=== PATIENT | female | born 1955 | race Caucasian/White ===

== ENCOUNTER 2016-06-27 14:15 | Observation (INO) | payer OTHER ==
[~2016-06-27] VITALS: Ht 160 cm; Wt 72.4 kg
[2016-06-27] VITALS (9 sets, daily range): BP systolic 113–172; BP diastolic 58–81; PULSE 55–100; RESP 18–23; O2SAT 92–97
[~2016-06-27 14:15] MED LIST: ACET-171 PO; ASPI-973 PO; ATOR10TA66 PO; CARV12.52 PO; CHOL200025 PO; CLOP75TA28 PO; CYAN500 PO; ENAL20TA76 PO; FLAX100038 PO; LYSI500T3 PO; MULT1CAP33 PO; NITR0.4T SL; PARO10TA2 PO; SPIR25TA PO; UBID100C25 PO
[2016-06-27 14:50] LABS: BASOPHILS % (AUTO) 0.5 % (0-3); EOSINOPHILS % (AUTO) 1.1 % (0-5); MONOCYTES % (AUTO) 6.8 % (4-12); Mean Corpuscular Hemoglobin 31.3 pg (27.0-35.0); Mean Corpuscular Volume 92.2 fL (81-100); NEUTROPHILS % (AUTO) 64.7 % (40-74); Platelet Count 246 bil/L (150-400)
--- NOTE | 2016-06-27 15:00 | DRSVH ---
PROCEDURE: X-RAY CHEST ONE VIEW, PORTABLE ([id number]) INDICATIONS: CHEST PAIN TECHNIQUE: One view of the chest was acquired. COMPARISON: [facility], CR, XR CHEST 1V PORTABLE, 11/22/2015, 9:03 PM. FINDINGS: Surgical changes and devices: None. Lungs and pleura: No pleural effusions or pneumothorax. Lungs are clear. Mediastinum: Mediastinal contours appear normal. Heart size is normal. Bones and chest wall: No suspicious bony lesions. Overlying soft tissues appear unremarkable. IMPRESSION: No acute process. Dictated by: Rylie Rodriguez M.D. on 06/27/2016 at 14:58 Approved by: Rylie Rodriguez M.D. on 06/27/2016 at 14:59
--- NOTE | 2016-06-27 15:11 | ED.REPORT ---
HPI-Chest Pain 40 and Over Date of Service Jun 27, 2016 ED Provider: Ela Olmstead MD A 60 year old female with a history of leukemia, hypertension, hyperlipidemia, chronic kidney disease, CAD, and prior STEMI s/p cardiac stenting x6 (11/2015) presents to the ED with upper back pain onset yesterday, worsening this morning upon awakening. The pain is exacerbated with exertion and swallowing, and relieved with laying flat. The patient also reports experiencing nausea and diaphoresis this afternoon, while driving. She denies shortness of breath, chest pain, arm pain, abdominal pain, or other symptoms. The patient's symptoms are similar to her recent NE, without left arm pain. Nursing Notes Stated Complaint: CHEST PAIN Chief Complaint: Chest Pain Nursing Notes Reviewed: Yes Allergies: Coded Allergies: Sulfa (Sulfonamide Antibiotics) (Verified Allergy, Intermediate, nausea and vomiting., 06/27/16) Scheduled Aspirin (Aspirin) 81 Mg Tablet 81 MG PO DAILY Atorvastatin Calcium (Atorvastatin Calcium) 10 Mg Tablet 10 MG PO HS Carvedilol (Carvedilol) 12.5 Mg Tablet 12.5 MG PO BIDWM Cholecalciferol (Vitamin D3) (Vitamin D3) 2,000 Unit Tablet 2,000 UNIT PO DAILY Clopidogrel (Clopidogrel) 75 Mg Tablet 75 MG PO DAILY Cyanocobalamin (Vitamin B12) 500 Mcg Tablet 1,000 MCG PO DAILY Enalapril Maleate (Vasotec) 20 Mg Tablet 20 MG PO DAILY Flaxseed Oil ([place]-3 Flaxseed Oil) 1,000 Mg Capsule 1,000 MG PO DAILY Lysine (Lysine) 500 Mg Tablet 500 MG PO DAILY Multivitamin (Multivitamins) 1 Each Capsule 1 EACH PO DAILY [place]-3 Fatty Acids (Fish Oil) 500 Mg Capsule.dr 500 MG PO DAILY Paroxetine (Paroxetine) 10 Mg Tablet 10 MG PO DAILY Spironolactone (Aldactone) 25 Mg Tablet 12.5 MG PO DAILY Ubidecarenone (Co Q-10) 100 Mg Capsule 100 MG PO BID Scheduled PRN Acetaminophen (Acetaminophen) 325 Mg Tablet 650 MG PO Q4H PRN PRN For Pain Nitroglycerin SL (Nitrostat) 0.4 Mg Tab.subl 0.4 MG SL Q5MIN PRN PRN For Chest Pain IF SBP > 90 General Time Seen by MD: 14:37 Chief Complaint Back pain Hx Obtained From: Patient Arrived By: Walk-in Sudden in Onset?: No Onset Occurred: Yesterday Symptom Duration: Since onset Location: : Back Quality: Painful Severity: Current: Moderate Severity: Maximum: Moderate Associated with: Reports: Diaphoresis, Nausea, Denies: Fever Relieved by: Supine Context Related History: Reports: Acute coronary syndrome, Hypertension, Myocardial infarction Recent Healthcare: No recent doctor visit Similar Sx Previous: Yes Past Medical History Past Medical History Notes: Obtained 11/2015 from [facility]: LABS: WBC 13.2 HGB: 13.2 HEMACTOCRIT: 38.3 PLT: 288 Troponin I: 4.050 with upper limit of normal being 0.050 Chest X Ray normal. Aspirins given at [facility] [place]: aspirin 324, plavix 600 mg, heparin bolus 3650 units and drip, nitroglycerin Metabolic panel: NA: 138 K: 3.4 Cl: 100 CO2: 26 Gluc: 121 BUN: 18 CR: 1.37 Bili: 0.9 CA: 8.2 Alt: 36 ASt: 32 Pt: 10.3 INR 1.0 Past Medical History Leukemia (2001) Shingles x2 Hypertension Hyperlipidemia CAD Acute anterior wall STEMI (11/2015) Chronic kidney disease Past Surgical History 1. PCI with balloon angioplasty and successful placement of 1 PA to the LAD / Dr. Adame (11/2015) 2. PCI with balloon angioplasty and 4 PA Xience stents to the RCA ( procedure complicated by RCA dissection) / Dr. Adame (11/2015) Family History 2 family members with early onset coronary disease. Smoking History Never Smoker Social History Other Social History: Good social support Occupation [employer] Ambulatory Status Independent Review of Systems Constitutional: Denies: Fever Respiratory: Denies: Non-productive cough, Shortness of breath Cardiovascular: Denies: Chest pain GI: Reports: Nausea, Denies: Abdominal pain, Diarrhea, Vomiting Musculoskeletal: Reports: Back pain, Denies: Extremity pain Skin: Reports Diaphoresis Complete sys rev & neg: except as marked. Physical Exam Initial Vital Signs Vital Signs (First) Date Time Temp Pulse Resp B/P Pulse Ox O2 Delivery O2 Flow Rate FiO2 06/27/16 14:20 36.4 60 20 158/70 97 Room Air Initial VS: Reviewed, Vital signs abnormal Head / Eyes: Atraumatic, Normocephalic ENT: Conjunctiva normal, No scleral icterus Neck: Supple, Full range of motion Skin: Warm, Dry, No cyanosis Neurologic: Alert, Oriented, Nonfocal Psychiatric: Mood/affect normal, Behavior normal, Normal thought content General/Constitutional: Awake, Alert, No acute distress Respiratory / Chest: Breath sounds NL, Breath sounds = bilat, No respiratory distress Cardiovascular: Heart rate NL, Regular rhythm, Heart sounds NL, No murmurs, No rubs Abdomen: Soft, Non-tender Interpretation & Diagnostics Lab Results Interpretation Result Diagram: 06/27/16 1435 06/27/16 1435 Test 06/27/16 14:35 White Blood Count 6.5th/mm3 (3.8-10.1) Red Blood Count 4.12mil/mm3 (3.90-5.20) Hemoglobin 12.9g/dL (12.0-15.6) Hematocrit 38.0% (35.0-46.0) Mean Corpuscular Volume 92.2fL (81-100) Mean Corpuscular Hemoglobin 31.3pg (27.0-35.0) Mean Corpuscular Hemoglobin Concent 33.9% (32.0-37.0) Red Cell Distribution Width 13.5% (12.3-15.4) Platelet Count 246bil/L (150-400) Neutrophils (%) (Auto) 64.7% (40-74) Lymphocytes (%) (Auto) 26.7% (14-46) Monocytes (%) (Auto) 6.8% (4-12) Eosinophils (%) (Auto) 1.1% (0-5) Basophils (%) (Auto) 0.5% (0-3) Sodium Level 141mEq/L (134-144) Potassium Level 4.3mEq/L (3.5-5.2) Chloride Level 105mEq/L (97-108) Carbon Dioxide Level 20mmol/L (18-29) Blood Urea Nitrogen 19mg/dL (8-27) Creatinine 1.23mg/dL (0.57-1.00) Estimat Glomerular Filtration Rate 64mL/min (>59) Glucose Level 96mg/dL (60-99) Calcium Level 9.7mg/dL (8.5-10.1) Magnesium Level 1.9mg/dL (1.6-2.6) Total Bilirubin 0.8mg/dL (0.0-1.2) Aspartate Amino Transf (AST/SGOT) 21U/L (0-50) Alanine Aminotransferase (ALT/SGPT) 15U/L (0-32) Alkaline Phosphatase 60U/L (25-165) Total Creatine Kinase 246U/L (21-215) Creatine Kinase MB 5.8ng/mL (0.0-5.3) Creatine Kinase MB % 2.4% (0.0-5.0) Troponin T < 0.010ug/L (0.0-0.011) Total Protein 7.4g/dL (6.4-8.4) Albumin 4.6g/dL (3.4-5.0) Hold Menjivar Top Tube Received (Received) ECG Interpretation ECG Interpretation: Sinus bradycardia rate 54 T-wave flattening in leads III, aVF, V5, and V6 Q waves in V1 and V2 Similar to previous on 11/25/2015, however T-wave changes are new Time: 14:33 Interpreted by: ED physician X-Ray Chest Interpretation Chest Xray Interpretation: IMPRESSION: No acute process. Dictated by: Rylie Rodriguez M.D. on 06/27/2016 at 14:58 View: Portable, 1 view Interpretation / Wet Read by: Interpret - Radiologist Re-Eval/Medical Decision Med Decision/Clinical Course The patient has atypical cardiac pain that presents with similar symptoms. She came in today because her symptoms are worse. Patient has symptoms of any kind of activities. She is pain-free lying back and at rest. Given her history and the fact that she easily gets symptoms is felt she should be admitted to the hospital for stress test. Additional differential diagnoses considered were pneumonia, pulmonary embolus, and musculoskeletal pain. Source of Hx: Old records Time of Eval: 16:36 Patient Status: Condition improved Re-Evaluation/Progress Note: The patient's pain has improved, especially while resting, but has not completely resolved. Discussed with patient lab and x-ray results, diagnosis, and plan for admit. Patient agrees with plan for care and all questions were addressed. Consultation : Referral / Consult Name: Dirk Spaulding MD Consulted With: Hospitalist Call Returned at: 17:06 Liquor Commissioner: Agrees with eval, Agrees with plan, Accepts admit Counseled Regarding: Diagnosis, Lab results, Need for admission Discharge & Departure Primary Impression: Chest pain Chest pain type: other chest pain Qualified Code: R07.89 - Other chest pain Disposition: ADMITTED TO HOSPITAL Discharge Condition All VS Reviewed: Yes Condition: Improved Referrals: Esperanza Chin PA-C (PCP) Scribe Attestation Portions of this note were transcribed by Sandra Mejia. I, Dr. Olmstead, personally performed the history, physical exam, and medical decision-making; I reviewed and confirmed the accuracy of the information in the transcribed note. Signed by: Brenden Escobar, 06/27/2016, 17:10 copies to: Esperanza Chin PA-C, Jena M MD Jun 27, 2016 15:11 SANDRA MEJIA Jun 27, 2016 15:18
[2016-06-27 15:14] LABS: TROPONIN T < 0.010 ug/L (0.0-0.011)
[2016-06-27] MEDS ORDERED: Nitroglycerin 2% 1 Gm Ointment TOPICAL ONE (15:20)
[2016-06-27 15:23] LABS: Magnesium 1.9 mg/dL (1.6-2.6)
[2016-06-27] MEDS ORDERED: Ondansetron 2 mg/mL 2 mL Inj IVPUSH PRN (17:05)
[2016-06-27] MEDS ORDERED: Senna-Docusate 8.6-50 mg Tablet PO PRN (17:05)
[2016-06-27] MEDS ORDERED: Polyethylene Glycol (PEG) 17 Gm Powder PO PRN (17:05)
[2016-06-27] MEDS ORDERED: Alum-Mag Hydrox-Simeth 30 mL Suspension PO PRN (17:05)
--- NOTE | 2016-06-27 17:14 | PCM.HPMED ---
Subjective Date of Service Jun 27, 2016 Primary Provider: Admitting Physician: Dirk Spaulding MD Primary Care Physician: Esperanza Chin PA-C Attending Physician: Dirk Spaulding MD Chief Complaint: Back pain radiating to left arm Review of Systems: Gen.: No fevers chills weight loss weight gain Eyes: no visual disturbances or blurring vision HEENT: No nose/throat drainage, no pain in ears or throat, no hearing loss Lymph: No lymph nodes noted Cardiac: No chest pain, orthopnea, PND, palpitations , pedal edema or dyspnea on exertion Pulmonary: no cough, wheezing or bringing up of sputum GI: No anorexia nausea vomiting blood or black in the stool : no dysuria hematuria urinary frequency or decrease in urine output Musculoskeletal: Joint swelling no joint pain no new muscle aches or back pain Neuro: No syncope, seizures no loss of consciousness no new focal weakness, numbness or tingling Psychiatric: New new anxiety insomnia or depression Endocrine: No new heat or cold intolerances polyuria or polydipsia Hematology: No lymphadenopathy or easy bleeding or bruising noted skin: No new rashes, stasis dermatitis Allergies Coded Allergies: Sulfa (Sulfonamide Antibiotics) (Verified Allergy, Intermediate, nausea and vomiting., 11/23/15) Home Medications Acetaminophen (Acetaminophen) 500 Mg Tablet 500 MG PO DAILY Aspirin (Aspirin) 81 Mg Tablet 81 MG PO DAILY Atorvastatin Calcium (Atorvastatin Calcium) 10 Mg Tablet 10 MG PO Manjula other night Carvedilol (Carvedilol) 12.5 Mg Tablet 12.5 MG PO BIDWM Cholecalciferol (Vitamin D3) (Vitamin D3) 2,000 Unit Tablet 2,000 UNIT PO DAILY Clopidogrel (Clopidogrel) 75 Mg Tablet 75 MG PO DAILY Cyanocobalamin (Vitamin B12) 500 Mcg Tablet 1,000 MCG PO DAILY Enalapril Maleate (Vasotec) 20 Mg Tablet 20 MG PO DAILY Flaxseed Oil ([place]-3 Flaxseed Oil) 1,000 Mg Capsule 1,000 MG PO DAILY Lysine (Lysine) 500 Mg Tablet 500 MG PO DAILY Multivitamin (Multivitamins) 1 Each Capsule 1 EACH PO DAILY Paroxetine (Paroxetine) 10 Mg Tablet 10 MG PO DAILY Spironolactone (Aldactone) 25 Mg Tablet 12.5 MG PO DAILY Ubidecarenone (Co Q-10) 100 Mg Capsule 100 MG PO DAILY Scheduled PRN Nitroglycerin SL (Nitrostat) 0.4 Mg Tab.subl 0.4 MG SL Q5MIN PRN PRN For Chest Pain IF SBP > 90 PMH 1. Leukemia in remission. 2. Hypertension/ Hypercholesterolemia. CAD PCI with balloon angioplasty and successful placement of 1 PA to the LAD / Dr. Adame (11/2015), PCI with balloon angioplasty and 4 PA Xience stents to the RCA ( procedure complicated by RCA dissection) / Dr. Adame (11/2015) Chronic kidney disease Hx shingles PAST SURGICAL HISTORY: 1. Appendectomy. 2. . Family History- 2 family members with early onset coronary disease. Smoking History Never Smoker Social History Other Social History: Good social support Occupation [employer] Ambulatory Status Independent Social History Hx Alcohol Use: Yes (5x a week ) Hx Substance Use: No Hx Tobacco Use: No Smoking Status: Never Smoker Exam Vital Signs Vital Sign - Last Date Time Temp Pulse Resp B/P Pulse Ox O2 Delivery O2 Flow Rate FiO2 06/27/16 16:15 97 23 116/60 92 Room Air 06/27/16 14:20 36.4 Exam Gen.- A+ O 3 no apparent distress. Eyes- open conjunctiva clear, pupils equal nonicteric Mouth- oral mucosa moist, no exudate ENT- ears normal, nose normal Neck- supple/trach midline CVS- RRR no murmur or gallop Lungs- CTA GI- NABS/NT soft Musc- moving 4 no obvious deformity Neuro- cranial nerves II through XII intact to gross examination, nonfocal Skin- warm and dry, no rashes/lesions/wounds noted Psych- pleasant and appropriate, Lab and Diagnostics Result Diagram: 06/27/16 1435 06/27/16 1435 X-Rays, CTs and MRIs IMPRESSION: No acute process. Dictated by: Rylie Rodriguez M.D. on 06/27/2016 at 14:58 12-lead ECG Sinus rhythm with rate of 54, QTC [address] segment changes no acute ST segment elevation or depression concurrently reviewed by co Cardiac Echo Impressions Echo 11/26/59 Interpretation Summary 1) Normal left ventricular thickness and size with mildly reduced systolic function (EF 45-50%). 2) Akinesis of the apical septum, apex, distal anterolateral wall, and mid to apical anterior wall. 3) Trival to small pericardial effusion present, unchanged from prior study. No echo evidence of tamponade physiology. 4) Compared to the Echo done 11/23/2015, no significant change. Assessment & Plan 60-year-old female with history of coronary artery disease/STEMI 11/30 comes in with back pain that radiates to her left arm and is resolved with nitroglycerin. In the emergency room she becomes pain-free except when she is herself Back and left arm pain-given significant history of below rule out NE by enzymes and do Myoview in the morning. Perhaps this is all musculoskeletal patient was working in the garden however the exertional component of it is concerning CAD S/P STEMI-continue home medications currently there is no sign of acute event HTN/lipids-controlled continue home medications Prophylaxis Lovenox and SCDs for DVT no GI indicated Disposition patient's full code from home Dirk Spaulding MD Jun 27, 2016 17:13
[2016-06-27] MEDS ORDERED: ACET325T51 PO (17:59)
[2016-06-27] MEDS ORDERED: OMEG500C PO (17:59)
--- NOTE | 2016-06-27 18:39 | NUR ---
Admit to unit Pt arrived on the unit at about 1820. Brought by ED staff via wheelchair. Family present at the bedside. Presently denies chest pain. Nitro paste on chest. Tele monitoring . Vital signs checked. Pt oriented to room and call light.
[2016-06-27] MEDS: 0.9% Sodium Chloride 1,000 ML IV SCH (19:45)
[2016-06-27] MEDS: Sodium Chloride LOK Flush 10 mL Syringe IVFLUSH SCH (19:46)
[2016-06-28 00:04] LABS: Creatine Kinase 171 U/L (21-215)
[2016-06-28 00:27] VITALS: BP 132/53; PULSE 50; RESP 20; O2SAT 94
[2016-06-28 05:34] VITALS: BP 156/79; PULSE 54; RESP 18; O2SAT 96
--- NOTE | 2016-06-28 06:03 | NUR ---
Uneventful Night: Pt had an uneventful night, no c/o pain, chest pain or SOB. Pt slept most of the night, pleasant and cooperative with care.
[2016-06-28] MEDS: 0.9% Sodium Chloride 1,000 ML IV SCH (06:08)
[2016-06-28 07:01] LABS: BASOPHILS % (AUTO) 0.5 % (0-3); EOSINOPHILS % (AUTO) 1.3 % (0-5); MONOCYTES % (AUTO) 6.8 % (4-12); Mean Corpuscular Hemoglobin 31.1 pg (27.0-35.0); Mean Corpuscular Volume 93.4 fL (81-100); NEUTROPHILS % (AUTO) 53.5 % (40-74); Platelet Count 220 bil/L (150-400)
[2016-06-28] MEDS ORDERED: PARoxetine 20 mg Tablet PO SCH (08:30)
[2016-06-28 10:50] VITALS: PULSE 57
[2016-06-28] MEDS: Sodium Chloride LOK Flush 10 mL Syringe IVFLUSH SCH (11:22)
--- NOTE | 2016-06-28 11:48 | NUR ---
Social Work-screening/readiness for discharge: Data:EMR Reviewed. Pt is a 60 y/o female who was admitted on 06/27/16 for chest pain resolved per H&P. Pt's insurance is [employer] and PCP is Esperanza SANZ. EMR reviewed. Pt's readmission score is 3- high risk .SW met with pt at bedside to discuss discharge planning ,SW role explained. Pt is alert and oriented x3. Pt resides at home alone in [place] where she remains independent with ADLS. Pt continues to work and has no HH/ SNF history. Pt has no fdc care or VA benefits. SW discussed DPOA/ advanced directive with pt, pt confirms that she has not completed this paperwork and is not interested in any information at this time. Per RN notes, pt has been up independent in her room-no PT needs indicated. Pt indicates that her sister will provide transport home at discharge. SW provided phone number and plan on white board in room. No anticipated discharge needs. SW will continue to follow if need arise. Assessment:Pt who is independent at baseline. Plan:Pt to discharge home when medically stable via POV. No anticipated discharge needs. SW will continue to follow if need arise. Mili Long MSW
--- NOTE | 2016-06-28 13:35 | NUR ---
Lisette CP Pt went to stress test at approx 8am and returned just after 10:30. Pt independent in room, ate lunch, currently resting comfortably in bed, voices no complaints. No CP this shift.
--- NOTE | 2016-06-28 14:33 | PCM.DC.MED ---
Discharge Summary Date of Service Jun 28, 2016 Dates of Hospitalization Date of Hospital Admission Jun 27, 2016 at 17:07 Date of Discharge: Jun 28, 2016 Providers: Admitting Physician: Dirk Spaulding MD Primary Care Physician: Esperanza Chin PA-C Attending Physician: Dirk Spaulding MD Diagnosis at Time of Discharge Diagnosis at Time of Discharge Chest pain noncardiac Procedures XRay, CTs & MRIs IMPRESSION: No acute process. Dictated by: Rylie Rodriguez M.D. on 06/27/2016 at 14:58 ECG 12 Lead Sinus rhythm with rate of 54, QTC [address] segment changes no acute ST segment elevation or depression concurrently reviewed by me Cardiac Echo Impression Echo 11/26/59 Interpretation Summary 1) Normal left ventricular thickness and size with mildly reduced systolic function (EF 45-50%). 2) Akinesis of the apical septum, apex, distal anterolateral wall, and mid to apical anterior wall. 3) Trival to small pericardial effusion present, unchanged from prior study. No echo evidence of tamponade physiology. 4) Compared to the Echo done 11/23/2015, no significant change. Other Diagnostics Myoview shows area of nonreversible ischemia read as low risk study Brief History 60-year-old female with a history of coronary artery disease presents with back pain with exertion relieved by nitroglycerin similar to when she presented with LA earlier in 2016 Hospital Course 60-year-old female with history of coronary artery disease/STEMI 11/30 comes in with back pain that radiates to her left arm and is resolved with nitroglycerin. In the emergency room she becomes pain-free except when she was exerting herself. Pain resolved by the time I met her for admission, ruled out for LA by enzymes and went for Myoview to 9 minutes on the treadmill performed well without symptoms and there was no reversible ischemia noted on the imaging. patient being discharged home on prior medications Back and left arm pain-given significant history of below ruled out LA by enzymes, low risk Myoview. Pain has resolved. CAD S/P STEMI-continue home medications currently there is no sign of acute event, Myoview low risk HTN/lipids-controlled continue home medications Exam Vital Signs (Last) Date Time Temp Pulse Resp B/P Pulse Ox O2 Delivery O2 Flow Rate FiO2 06/28/16 10:50 57 06/28/16 05:34 36.6 18 156/79 96 Room Air Test 06/27/16 14:35 06/27/16 23:25 06/28/16 06:45 Magnesium Level 1.9mg/dL (1.6-2.6) Total Bilirubin 0.8mg/dL (0.0-1.2) Aspartate Amino Transf (AST/SGOT) 21U/L (0-50) Alanine Aminotransferase (ALT/SGPT) 15U/L (0-32) Alkaline Phosphatase 60U/L (25-165) Total Protein 7.4g/dL (6.4-8.4) Albumin 4.6g/dL (3.4-5.0) Hold Menjivar Top Tube Received (Received) Total Creatine Kinase 171U/L (21-215) Creatine Kinase MB 3.9ng/mL (0.0-5.3) Creatine Kinase MB % % (0.0-5.0) White Blood Count 4.0th/mm3 (3.8-10.1) Red Blood Count 4.08mil/mm3 (3.90-5.20) Hemoglobin 12.7g/dL (12.0-15.6) Hematocrit 38.1% (35.0-46.0) Mean Corpuscular Volume 93.4fL (81-100) Mean Corpuscular Hemoglobin 31.1pg (27.0-35.0) Mean Corpuscular Hemoglobin Concent 33.3% (32.0-37.0) Red Cell Distribution Width 13.4% (12.3-15.4) Platelet Count 220bil/L (150-400) Neutrophils (%) (Auto) 53.5% (40-74) Lymphocytes (%) (Auto) 37.6% (14-46) Monocytes (%) (Auto) 6.8% (4-12) Eosinophils (%) (Auto) 1.3% (0-5) Basophils (%) (Auto) 0.5% (0-3) Sodium Level 143mEq/L (134-144) Potassium Level 4.6mEq/L (3.5-5.2) Chloride Level 108mEq/L (97-108) Carbon Dioxide Level 22mmol/L (18-29) Blood Urea Nitrogen 18mg/dL (8-27) Creatinine 1.19mg/dL (0.57-1.00) Estimat Glomerular Filtration Rate 66mL/min (>59) Glucose Level 105mg/dL (60-99) Calcium Level 9.1mg/dL (8.5-10.1) Troponin T 0.010ug/L (0.0-0.011) Triglycerides Level 148mg/dL (0-149) Cholesterol Level 189mg/dL (100-199) LDL Cholesterol, Calculated 118.400mg/dL (0-99) VLDL Cholesterol 29.600mg/dL HDL Cholesterol 41mg/dL (>39) Cholesterol/HDL Ratio 4.61 (0.0-4.4) Discharge Medications Discharge Medications Aspirin (Aspirin) 81 Mg Tablet 81 MG PO DAILY (Reported) Atorvastatin Calcium (Atorvastatin Calcium) 10 Mg Tablet 10 MG PO HS (Reported) Carvedilol (Carvedilol) 12.5 Mg Tablet 12.5 MG PO BIDWM Prescribed by: [facility] URRUTIA Cholecalciferol (Vitamin D3) (Vitamin D3) 2,000 Unit Tablet 2,000 UNIT PO DAILY (Reported) Clopidogrel (Clopidogrel) 75 Mg Tablet 75 MG PO DAILY Prescribed by: [facility] URRUTIA Cyanocobalamin (Vitamin B12) 500 Mcg Tablet 1,000 MCG PO DAILY (Reported) Enalapril Maleate (Vasotec) 20 Mg Tablet 20 MG PO DAILY (Reported) Flaxseed Oil ([place]-3 Flaxseed Oil) 1,000 Mg Capsule 1,000 MG PO DAILY (Reported ) Lysine (Lysine) 500 Mg Tablet 500 MG PO DAILY (Reported) Multivitamin (Multivitamins) 1 Each Capsule 1 EACH PO DAILY (Reported) [place]-3 Fatty Acids (Fish Oil) 500 Mg Capsule.dr 500 MG PO DAILY (Reported) Paroxetine (Paroxetine) 10 Mg Tablet 10 MG PO DAILY (Reported) Spironolactone (Aldactone) 25 Mg Tablet 12.5 MG PO DAILY Prescribed by: U[facility] URRUTIA Ubidecarenone (Co Q-10) 100 Mg Capsule 100 MG PO BID (Reported) As needed Acetaminophen (Acetaminophen) 325 Mg Tablet 650 MG PO Q4H PRN PRN For Pain ( Reported) Nitroglycerin SL (Nitrostat) 0.4 Mg Tab.subl 0.4 MG SL Q5MIN PRN PRN For Chest Pain IF SBP > 90 Prescribed by: DANNY L ANN, PAC Followup Plan Disposition: Home Follow-up plan Primary care provider and cardiology as previously scheduled. Discharge Diet: Heart Healthy Discharge Activity: No restrictions Dirk Spaulding MD Jun 28, 2016 14:33
[2016-06-28 14:48] VITALS: BP 152/77; PULSE 56; RESP 18; O2SAT 96
--- NOTE | 2016-06-28 15:09 | NUR ---
Discharge Pt d/c home as ordered. Removed IV, catheter intact, no bleeding. Provided pt with d/c paperwork and instructions, including carenotes. Pt will follow up with PCP as discussed w/ hospitalist. Currently dressing in room.
--- NOTE | 2016-06-28 15:21 | NUR ---
Social Work-discharge: Data:EMR Reviewed. PT is on day 1 of hospitalization for chest pain per H&P. Pt is medically stable for discharge today. Pt has been up independent in her room. No discharge needs identified. All updated and agreeable to plan. Assessment:Pt who is independent at baseline. Plan:Pt to discharge home today via POV. No discharge needs identified. All updated and agreeable to plan. LIBERTY Hammond
--- NOTE | 2016-06-28 18:26 | DRSVH ---
PROCEDURE: ONE DAY TREADMILL STRESS TEST. Rest and exercise myocardial perfusion SPECT with gated i maging and ejection fraction RADIOPHARMACEUTICAL: 9.0 mCi Tc-99m tetrofosmin IV at rest and 25.3 mCi Tc-99m tetrofosmin IV at pea k exercise. Oui-[id number] was performed. INDICATIONS: CHEST PAIN CONSISTENT WITH PRIOR NJ TECHNIQUE: Radiopharmaceutical was injected at peak stress test, and also at rest. SPECT images wer e obtained. SPECT myocardial perfusion images were displayed in short axis, horizontal long axis, an d vertical long axis views. Gated images were reviewed using [email or web address] software. COMPARISON: None. CARDIAC STRESS: A standard Willis treadmill exercise tolerance test was performed by the patient unde r the supervision of the attending staff. The patient exercised for 9 minutes and zero seconds; func tional aerobic impairment (NA) is -30%. Hemodynamic Data: There was a hypertensive blood pressure response and normal heart rate response to exercise stress. The patient achieved 84% of maximum predicted heart rate at peak exercise. Symptoms: The patient denied chest pain during exercise. EKG: Baseline rhythm was sinus with evidence of old anterior wall NJ with some nonspecific ST-T dickens ges. Stress EKG did not reveal any obvious inducible ischemic changes. There was no significant charanjit tained arrhythmia seen. FINDINGS: Raw Data: There appears to be adequate myocardial uptake. Left Ventricular Function: Stress LV ejection fraction is 74%. I do not see any obvious wall motion abnormalities. Resting LV end diastolic volume is 77 mL. On my visual inspection, I do not see any obvious transient ischemic dilatation. Myocardial Perfusion: Stress supine, resting supine and stress prone images were compared to each ot her. It appears the patient has predominantly fixed, small to moderate size, moderately decreased pe rfusion of the distal anterior wall, distal inferolateral wall and anteroapex. I do not see any sign ificant reversible ischemia. 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 I do not see any significant reversible ischemia. The patient has good exercise tolerance and walked on Willis protocol for 9 minutes achiev ing 10.1 METs of workload and functional aerobic impairment of -30%. There is a hypertensive blood p ressure response. The patient achieved 84% of target heart rate. On that workload, there is no obvi ous inducible ischemia. No significant arrhythmia seen. Overall stress left ventricular ejection fr action is 74% without any obvious transient ischemic dilatation on visual inspection. Hence, this pe rfusion scan appears to be a low-risk myocardial perfusion scan. Dictated by: Jessica Danielle M.D. on 06/28/2016 at 14:28 Transcribed by: DANIELLE on 06/28/2016 at 21:26 Approved by: Jessica Danielle M.D. on 06/29/2016 at 12:45
== END 2016-06-28 15:27 | disposition home or self-care (01) ==
LOC: SED 14:15 → MPC 17:07
PROVIDERS: ADMIT Hospitalist; ATTEND Hospitalist
DX: R07.89 Other chest pain (principal); I12.9 Hypertensive chronic kidney disease with stage 1 through stage 4 chronic kidney disease, or unspecified chronic kidney disease; I25.10 Atherosclerotic heart disease of native coronary artery without angina pectoris; I25.2 Old myocardial infarction; E78.00 Pure hypercholesterolemia, unspecified; N18.9 Chronic kidney disease, unspecified; Z98.61 Coronary angioplasty status; Z79.82 Long term (current) use of aspirin; Z79.899 Other long term (current) drug therapy
CPT/HCPCS: 36415; 71010; 78452; 80048; 80053; 80061; 82550; 82553; 83735; 84484; 85025; 93005; 93017; 99285; A9502; G0378; J1650; J7030